=== PATIENT | female | born 2005 | race Two or more races ===

== ENCOUNTER 2024-07-18 11:04 | Emergency (ER) | payer MEDICAID ==
[~2024-07-18] VITALS: Ht 167.6 cm; Wt 77.9 kg
[2024-07-18 13:50] LABS: Urine Bacteria None Seen /hpf (None Seen)
[2024-07-18 13:57] LABS: Urine Blood Negative /uL (Negative); Urine Clarity Clear (Clear); Urine Color Colorless (Yellow); Urine Protein, UAD Negative (Negative); Urine Specific Gravity 1.006 (1.001-1.035); Urine Urobilinogen Normal (Negative); Urine WBC 1 /hpf (0 - 5)
[2024-07-18 14:11] VITALS: BP 116/75; PULSE 105; RESP 16; TEMP 98.5; O2SAT 96
[2024-07-18] MEDS ORDERED: CEPH250C PO (14:17)
== END 2024-07-18 14:30 | disposition home or self-care (01) ==
LOC: ER 11:16
DX: O23.42 Unspecified infection of urinary tract in pregnancy, second trimester (principal); R10.2 Pelvic and perineal pain; Z3A.20 20 weeks gestation of pregnancy
CPT/HCPCS: 36415; 81001; 82962; 84702; 93005

== ENCOUNTER 2024-11-17 03:56 | Inpatient (IN) | payer MEDICAID ==
[~2024-11-17] VITALS: Ht 167.6 cm; Wt 93.9 kg
[~2024-11-17 03:56] MED LIST: CEPH250C PO
--- NOTE | 2024-11-17 05:31 | DVH ---
BIOPHYSICAL PROFILE HISTORY: Rupture of membranes Comparison Study: None TECHNIQUE: Multiple real-time grayscale sonographic images through the gravid uterus of the fetus wi th duplex Doppler color flow and M-mode spectral analysis FINDINGS: BIOPHYSICAL PROFILE: breathing score: 2 movement score: 2 tone score: 2 Quantitative CARLI score: 0 (CARLI: 4.5 Cm.) Total score: 6/8 The cervix is not visualized Single live fetus in cephalic presentation. heart rate 147 beats per minute. Anterior placenta without previa or abruption IMPRESSION: Biophysical profile score: 6/8 CARLI measures 4.5 cm.
[2024-11-17 07:00] LABS: Basophils # (auto) 0.1 10 ^3/uL (0-0.2); Eosinophils # (auto) 0.1 10 ^3/uL (0-0.8); Hemoglobin 12.1 g/dL (12.2-16.2); Monocytes # (auto) 0.6 10 ^3/uL (0-1.3); Nucleated Red Blood Cells % 0.1 %
[2024-11-17 07:04] LABS: Fern Testing Positive
[2024-11-17 07:04] LABS: Basophils % (auto) 0.7 % (0.0-2.0); Eosinophils % (auto) 0.6 % (0.0-7.0); Hematocrit 37.3 % (36.0-46.0); Lymphocytes # (auto) 3.3 10 ^3/uL (0.4-5.4); Lymphocytes % (auto) 30.1 % (10.0-50.0); Mean Corpuscular Hemoglobin 26.5 pg (28.0-32.0); Mean Corpuscular Hgb Conc. 32.5 g/dL (32.0-36.0); Mean Corpuscular Volume 81.4 fL (80.0-100.0); Monocytes % (auto) 5.4 % (0.0-12.0); Neutrophils % (auto) 63.2 % (37.0-80.0); Platelet Count (auto) 317 10^3/uL (140-450); Red Blood Cells 4.58 10^6/uL (4.0-5.20); Red Cell Distribution Width 15.4 % (11.8-14.3); White Blood Cell 11.1 10^3/uL (4.4-10.8)
[2024-11-17 07:05] LABS: INR 0.93 (0.9-1.15); Prothrombin Time 9.9 sec (9.3-11.8)
[2024-11-17 07:10] LABS: Alanine Aminotransferase 11 U/L (7-40); Albumin 3.9 g/dL (3.2-4.8); Anion Gap 11 (5-15); Aspartate Aminotransferase 16 U/L (13-40); BUN/Creatinine Ratio 14.1 (10.0-20.0); Blood Urea Nitrogen 10 mg/dL (9-23); Calcium 9.4 mg/dL (8.7-10.4); Carbon Dioxide 21 mmol/L (20-31); Chloride 106 mmol/L (98-107); Sodium 138 mmol/L (136-145)
[2024-11-17 07:11] LABS: Bilirubin, Total 0.3 mg/dL (0.2-1.0)
[2024-11-17 07:12] LABS: Alkaline Phosphatase 243 U/L (46-116); Glucose 73 mg/dL (74-106)
[2024-11-17 08:00] LABS: Urine Bacteria FEW /hpf (None Seen); Urine Blood 2+ /uL (Negative); Urine Clarity Turbid (Clear); Urine Color Colorless (Yellow); Urine Protein, UAD TRACE (Negative); Urine Specific Gravity 1.009 (1.001-1.035); Urine Squamous Epithelial Cell FEW /hpf (<5); Urine Urobilinogen Normal (Negative); Urine WBC 6 /HPF (0-5); Urine pH 6.5 (5.0-9.0)
--- NOTE | 2024-11-17 08:06 | DVHHP2 ---
OB CC & HPI Date Date of Admission: Nov 17, 2024 Patient Identification: : 1 Para: 0 EDC: Nov 18, 2024 EGA: 39wks Chief Complaints: Reason for admission: rupture of membranes Admission Nurse Assessment Rev: No History of Present Complaints pt is admitted for srom has no vag bleeding Past Medical History Cardiac: No pertinent Hx Pulmonary: No pertinent Hx Central Nervous System: No pertinent Hx GI: No pertinent Hx Hemotology/Oncology: No pertinent Hx Hepatobiliary: No pertinent Hx Psychiatric: No pertinent Hx Musculoskeletal: No pertinent Hx Rheumotologic: No pertinent Hx Infectious Disease: No peritnent Hx ENT: No pertinent Hx Renal/: No pertinent Hx Endocrine: No pertinent Hx Dermatology: No pertinent Hx Past Surgical History: No pertinent Hx OB History OB History Ultrasounds: Normal mid trimester US Obstetrical Complications: None Medical Complications: None Allergies: Coded Allergies: NO KNOWN ALLERGIES (Unverified , 07/18/24) Home Meds Active Scripts Cephalexin (KEFLEX CAPSULE) 250 Mg Cp, 250 MG PO QID for 5 Days, #20 BOTTLE Prov:FLORA SHERIDAN MD 07/18/24 Current Medications Current Medications Medications (Trade) Dose Ordered Sig/Mike Route PRN Reason Start Time Stop Time Status Last Admin Lactated Ringer's 1,000 ml @ 125 mls/hr Q8H IV 11/17/24 06:00 Nalbuphine HCl (Nubain) 10 mg Q4HP PRN IV MODERATE PAIN (4-6 PAIN SCALE) 11/17/24 06:00 Witch Flor (Tucks) 1 pad PRN PRN TOP PERINEAL AREA DISCOMFORT 11/17/24 06:00 Sodium Lauryl Sulfate (Phisoderm) 240 ml PRN PRN TOP PERINEAL AREA DISCOMFORT 11/17/24 06:00 Benzocaine (Dermoplast) 1 applic PRN PRN TOP PERINEAL AREA DISCOMFORT 11/17/24 06:00 Lidocaine HCl (Xylocaine) 40 ml ONCE PRN IJ PERINEAL AREA DISCOMFORT 11/17/24 06:00 Family & Social History Family/Social History Blood Type: Unknown Rubella: unknown RPR/VDRL: Negative GBS Status: Unknown HBsAG: Negative Review of Systems Constitutional: No symptom reported Ears, Nose, & Throat: No symptom reported Eyes: No symptom reported Pulmonary/Respiratory: No symptom reported Cardiovascular: No symptom reported Gastrointestinal: No symptom reported Genitourinary: No symptom reported Musculoskeletal: No symptom reported Skin: No symptom reported Psychiatric: No symptom reported Endocrine: No symptom reported Hemotologic/Lymphatic: No symptom reported OB Admission Exam Physical Exam HEENT: TMs Normal, Fontanelles Normal, Nasal Mucosa Normal, Eyes non-injected, Oropharynx Normal, PERRLA, Moist Membranes, EOMI Heart: Rhythm Normal Lungs: Clear Abdomen: Non tender Extremities: Normal Reflexes: Normal Cervical Dilatation: 3cm Effacement: 50% Station: -2 Membranes: Ruptured Amniotic Fluid: Clear Heart Rate: 130's Accelerations: Accelerations Present Decelerations: No Decelerations Short Term Variability: Present Detention Variability: Average (6-25) Contractions on Admission: < 5 Minutes Apart Intensity: Moderate OB Plan Plan Admitting Diagnosis: iup at 39wks with srom Plan: Expectant Management Other Plan: informed consent obtained Visit Coding OBGYN Date of Service: Nov 17, 2024 Billing Provider: RICARDO KIMBLE DO SCHEDULER MAINTENANCE Common Visit Codes: [id number]-[id number] SAME DATE (HIGH) SCHEDULER MAINTENANCE Procedure Codes: 08426-64- NON-STRESS TEST RICARDO KIMBLE DO Nov 17, 2024 08:06
[2024-11-17 08:21] LABS: Amphetamine Screen, Urine Neg (NEGATIVE); Barbiturate Scree,Urine Neg (NEGATIVE); Benzodiazephine Screen, Urine Neg (NEGATIVE); Cannabinoid Screen, Urine Neg (NEGATIVE); Opiate Scree,Urine Neg (NEGATIVE); Phencyclidine Screen, Urine Neg (NEGATIVE)
[2024-11-17 08:31] LABS: Cocaine Screen, Urine Neg (NEGATIVE)
[2024-11-17] MEDS ORDERED: TERBUTALINE SULFATE 1 MG/ML 1ML VIAL SC PRN (10:30)
[2024-11-17] MEDS: LACT. RINGERS/OXYTOCIN 20UNITS 1,000 ML IV SCH (11:00)
[2024-11-17] MEDS: LACTATED RINGER'S 1,000 ML IV SCH (11:03)
[2024-11-17] MEDS: PHISODERM TOP SOLN 240ML BTL TOP PRN (11:03)
[2024-11-17] MEDS: WITCH HAZEL-GLYCERIN PAD TOP PRN (11:03)
[2024-11-17] MEDS: DERMOPLAST 60ML BOTTLE TOP PRN (11:03)
--- NOTE | 2024-11-17 14:27 | DVHPN2 ---
Chief Complaints Patient reports: No new complaints Nursing reports: No new complaints Objective Medications Current Medications Medications (Trade) Dose Ordered Sig/Mike Route PRN Reason Start Time Stop Time Status Last Admin Benzocaine (Dermoplast) 1 applic PRN PRN TOP PERINEAL AREA DISCOMFORT 11/17/24 06:00 11/17/24 11:03 Lactated Ringer's 1,000 ml @ 125 mls/hr Q8H IV 11/17/24 06:00 11/17/24 11:03 Lidocaine HCl (Xylocaine) 40 ml ONCE PRN IJ PERINEAL AREA DISCOMFORT 11/17/24 06:00 Nalbuphine HCl (Nubain) 10 mg Q4HP PRN IV MODERATE PAIN (4-6 PAIN SCALE) 11/17/24 06:00 Oxytocin 1,000 ml @ 6 ml/hr Q24H IV 11/17/24 10:30 11/17/24 11:00 Sodium Lauryl Sulfate (Phisoderm) 240 ml PRN PRN TOP PERINEAL AREA DISCOMFORT 11/17/24 06:00 11/17/24 11:03 Terbutaline Sulfate (Brethine Inj) 0.25 mg ONCE PRN SC Uterine tachysystole 11/17/24 10:30 Witch Flor (Tucks) 1 pad PRN PRN TOP PERINEAL AREA DISCOMFORT 11/17/24 06:00 11/17/24 11:03 Others ve-4cm/70/-2 pt seen at noon Studies Laboratory Tests 11/17/24 06:16 Test 11/17/24 06:16 Range/Units Serum Glucose 73 L 74-106 mg/dL Ass/Plan Assessment labor Plan cont with pitocin Visit Coding OBGYN Date of Service: Nov 17, 2024 Billing Provider: RICARDO KIMBLE DO WATCH TRAIN ASSEMBLER Common Visit Codes: [id number] INP/OBS CARE(HIGH) WATCH TRAIN ASSEMBLER Procedure Codes: 97920-81- NON-STRESS TEST RICARDO KIMBLE DO Nov 17, 2024 14:27
--- NOTE | 2024-11-17 15:45 | DVHPN2 ---
CNM Labor Progress Note Date and Time Seen Date Seen: Nov 17, 2024 Time Seen: 15:25 Subjective Subjective Comment Pt is tolerating UC pain. Denies GIL/vision changes/RUQ pain. Objective Vital Signs VSS except liable hypertension, not severe range EFW 8lbs per Dr. Swartz Monitoring Method Monitoring Method: External Heart Rate Heart Rate Baseline: 130 Heart Rate Variability: Moderate Presence of FHR Accelerations: Yes Presence of FHR Decelerations: No Are all 5 Components of the FH: Yes Contractions Contractions Frequency: Other (q2-4min) Duration of Contraction: 100 Contractions Intensity: Moderate Contractions Resting Tone: Relaxed Membranes Membranes: Ruptured Amniotic Fluid Color: Clear Vaginal Exam Vag Exam Deferred: Yes (SVE by RN: /-1, vertex) Medications Medications - Pitocin: Yes (6mu) Medications - Pain Medications: PRN Medication - Epidural: No Lab Results Lab Results Current Medications Medications (Trade) Dose Ordered Sig/Mike Start Time Stop Time Status Last Admin Dose Admin Lactated Ringer's 1,000 ml @ 125 mls/hr Q8H 11/17/24 06:00 11/17/24 11:03 125 MLS/HR Nalbuphine HCl (Nubain) 10 mg Q4HP PRN 11/17/24 06:00 Witdavid Ray (Tucks) 1 pad PRN PRN 11/17/24 06:00 11/17/24 11:03 1 PAD Sodium Lauryl Sulfate (Phisoderm) 240 ml PRN PRN 11/17/24 06:00 11/17/24 11:03 240 ML Benzocaine (Dermoplast) 1 applic PRN PRN 11/17/24 06:00 11/17/24 11:03 1 APPLIC Lidocaine HCl (Xylocaine) 40 ml ONCE PRN 11/17/24 06:00 Oxytocin 500 ml @ 999 mls/hr Q31M ONCE 11/17/24 09:00 11/17/24 09:30 DC Oxytocin 500 ml @ 125 mls/hr Q4H ONCE 11/17/24 09:30 11/17/24 13:29 DC Oxytocin 1,000 ml @ 6 ml/hr Q24H 11/17/24 10:30 11/17/24 11:00 6 ML/HR Terbutaline Sulfate (Brethine Inj) 0.25 mg ONCE PRN 11/17/24 10:30 Laboratory Tests Test 11/17/24 06:39 11/17/24 06:16 11/17/24 05:05 Range/Units Urine Color Colorless Yellow Urine Clarity Turbid H Clear Urine pH 6.5 5.0-9.0 Urine Specific [place] 1.009 1.001-1.035 Urine Protein Trace H Negative Urine Ketones Negative Negative Urine Blood 2+ H Negative /uL Urine Nitrite Negative Negative Urine Bilirubin Negative Negative Urine Urobilinogen Normal Negative mg/dL Urine Leukocyte Esterase 1+ Negative /uL Urine RBC 7 0 - 4 /hpf Urine Microscopic WBC 6 H 0-5 /HPF Urine Squamous Epithelial Cells Few <5 /hpf Urine Bacteria Few H None Seen /hpf Urine Glucose Normal Normal mg/dL Urine Opiates Screen Neg NEGATIVE Urine Fentanyl Screen Neg NEGATIVE Urine Barbiturates Screen Neg NEGATIVE Urine Phencyclidine Screen Neg NEGATIVE Urine Amphetamines Screen Neg NEGATIVE Urine Benzodiazepines Screen Neg NEGATIVE Urine Cocaine Screen Neg NEGATIVE Urine Cannabinoids Screen Neg NEGATIVE White Blood Count 11.1 H 4.4-10.8 10^3/uL Red Blood Count 4.58 4.0-5.20 10^6/uL Hemoglobin 12.1 L 12.2-16.2 g/dL Hematocrit 37.3 36.0-46.0 % Mean Corpuscular Volume 81.4 80.0-100.0 fL Mean Corpuscular Hemoglobin 26.5 L 28.0-32.0 pg Mean Corpuscular Hemoglobin Concent 32.5 32.0-36.0 g/dL Red Cell Distribution Width 15.4 H 11.8-14.3 % Platelet Count 317 140-450 10^3/uL Mean Platelet Volume 8.6 6.9-10.8 fL Neutrophils (%) (Auto) 63.2 37.0-80.0 % Lymphocytes (%) (Auto) 30.1 10.0-50.0 % Monocytes (%) (Auto) 5.4 0.0-12.0 % Eosinophils (%) (Auto) 0.6 0.0-7.0 % Basophils (%) (Auto) 0.7 0.0-2.0 % Neutrophils # (Auto) 7.0 1.6-8.6 10 ^3/uL Lymphocytes # (Auto) 3.3 0.4-5.4 10 ^3/uL Monocytes # (Auto) 0.6 0-1.3 10 ^3/uL Eosinophils # (Auto) 0.1 0-0.8 10 ^3/uL Basophils # (Auto) 0.1 0-0.2 10 ^3/uL Nucleated Red Blood Cells 0.1 % Prothrombin Time 9.9 9.3-11.8 sec Prothrombin Time INR 0.93 0.9-1.15 Activated Partial Thromboplast Time 28.0 24.5-34.5 SEC Sodium Level 138 136-145 mmol/L Potassium Level 4.0 3.5-5.1 mmol/L Chloride Level 106 98-107 mmol/L Carbon Dioxide Level 21 20-31 mmol/L Anion Gap 11 5-15 Blood Urea Nitrogen 10 9-23 mg/dL Creatinine 0.71 0.550-1.02 mg/dL Glomerular Filtration Rate Calc 125 >90 mL/min BUN/Creatinine Ratio 14.1 10.0-20.0 Serum Glucose 73 L 74-106 mg/dL Uric Acid 6.4 3.1-7.8 mg/dL Calcium Level 9.4 8.7-10.4 mg/dL Total Bilirubin 0.3 0.2-1.0 mg/dL Aspartate Amino Transferase (AST) 16 13-40 U/L Alanine Aminotransferase (ALT) 11 7-40 U/L Alkaline Phosphatase 243 H 46-116 U/L Total Protein 6.0 5.7-8.2 g/dL Albumin 3.9 3.2-4.8 g/dL Rapid Plasma Reagin Pending Hepatitis B Surface Antigen Negative Negative Hepatitis C Antibody Negative Negative HIV (1&2) Antibody Negative Negative Rubella IgG Antibody Pending Amniotic Fluid Ferning Test Positive Assessment Assessment A: 19yo IUP@39.6wks Spontaneous Labor Pitocin augmentation Category I EFM SROM, clear fluid GBS negative Plan Plan P: PreE labs ordered Continue with IV pitocin titration per order monitoring per order Pain mgmt PRN Frequent position changes in and out of bed encouraged Limit SVE unless necessary Intrauterine resuscitation PRN Anticipate CNM consulted with Dr. Swartz, agrees with POC Plan discussed with: Patient, Other (family) Visit Coding OBGYN Date of Service: Nov 17, 2024 Billing Provider: MARCIA AMARO CNM PHP WORDPRESS DEVELOPER Common Visit Codes: [id number] INP/OBS CARE(HIGH) MARCIA AMARO CNM Nov 17, 2024 15:45
[2024-11-17 16:31] LABS: Protein, Urine 28.4 mg/dL (1-14)
[2024-11-17 16:33] LABS: Creatinine, Urine 78.82 mg/dL (30.0-125.0); Urine Protein/Creatinine Ratio 0.36
[2024-11-17] MEDS: ONDANSETRON HCL 4 MG/2 ML VIAL IV PRN (18:01)
[2024-11-17] MEDS: NALBUPHINE HCL 10 MG/1ml INJECTION IV PRN (18:02)
[2024-11-17] MEDS ORDERED: ACETAMINOPHEN 325 MG TAB PO PRN (20:30)
[2024-11-17] MEDS ORDERED: diphenhdrAMINE HCL 50 MG/1 ML VL IV PRN (20:30)
[2024-11-17] MEDS ORDERED: miSOPROStol 100 mcg TAB PR PRN (20:30)
[2024-11-17] MEDS ORDERED: CARBOPROST TROMETHAMINE 250 MCG/1ML VIAL IM PRN (20:30)
[2024-11-17] MEDS ORDERED: ONDANSETRON HCL 4 MG/2 ML VIAL IV PRN (20:30)
[2024-11-17] MEDS: ceFAZolin 2 GM/D5W50ml 50 ML IV SCH (21:19)
--- NOTE | 2024-11-17 23:05 | DVHPN2 ---
CNM Labor Progress Note Date and Time Seen Date Seen: Nov 17, 2024 Time Seen: 22:00 Subjective Patient reports: No new complaints Subjective Comment Pt is tolerating UC pain. Denies GIL/vision changes/RUQ pain. Objective Vital Signs VSS except HTN, see chart Monitoring Method Monitoring Method: External Heart Rate Heart Rate Baseline: 135 Heart Rate Variability: Moderate Presence of FHR Accelerations: Yes Presence of FHR Decelerations: Yes Heart Rate Type of Decel: Early Deceleraions Comment on Trends or Patterns: Are all 5 Components of the FH: Yes Contractions Contractions Frequency: Other (2-4) Duration of Contraction: 60 Contractions Intensity: Moderate Contractions Resting Tone: Relaxed Membranes Membranes: Ruptured Amniotic Fluid Color: Clear Vaginal Exam Vag Exam Deferred: No (6.5 cm) Vaginal Exam Effacement: 90 Vaginal Exam Station: -1 Vaginal Exam Presentation: VTX Vaginal Exam Show: Small Medications Medications - Pitocin: Yes (10mu) Medications - Pain Medications: PRN Medication - Epidural: No Lab Results Lab Results Vital Signs Date Time Temp Pulse Resp B/P (MAP) Pulse Ox O2 Delivery O2 Flow Rate FiO2 11/17/24 19:02 80 16 127/77 Current Medications Medications (Trade) Dose Ordered Sig/Mike Start Time Stop Time Status Last Admin Dose Admin Lactated Ringer's 1,000 ml @ 125 mls/hr Q8H 11/17/24 06:00 11/17/24 19:54 125 MLS/HR Nalbuphine HCl (Nubain) 10 mg Q4HP PRN 11/17/24 06:00 11/17/24 18:02 10 MG Witch Flor (Tucks) 1 pad PRN PRN 11/17/24 06:00 11/17/24 11:03 1 PAD Sodium Lauryl Sulfate (Phisoderm) 240 ml PRN PRN 11/17/24 06:00 11/17/24 11:03 240 ML Benzocaine (Dermoplast) 1 applic PRN PRN 11/17/24 06:00 11/17/24 11:03 1 APPLIC Lidocaine HCl (Xylocaine) 40 ml ONCE PRN 11/17/24 06:00 Oxytocin 500 ml @ 999 mls/hr Q31M ONCE 11/17/24 09:00 11/17/24 09:30 DC Oxytocin 500 ml @ 125 mls/hr Q4H ONCE 11/17/24 09:30 11/17/24 13:29 DC Oxytocin 1,000 ml @ 6 ml/hr Q24H 11/17/24 10:30 11/17/24 11:00 6 ML/HR Terbutaline Sulfate (Brethine Inj) 0.25 mg ONCE PRN 11/17/24 10:30 Ondansetron HCl (Zofran) 4 mg Q4HPRN PRN 11/17/24 17:30 11/18/24 00:07 4 MG Cefazolin Sodium/ Dextrose 50 ml @ 50 mls/hr Q8HR 11/17/24 21:30 11/17/24 21:19 50 MLS/HR Ondansetron HCl (Zofran) 4 mg Q4HP PRN 11/17/24 20:30 Diphenhydramine HCl (Benadryl Injection) 50 mg Q4HP PRN 11/17/24 20:30 Carboprost Tromethamine (Hemabate) 250 mcg ONCE PRN 11/17/24 20:30 11/24/24 20:31 Misoprostol (Cytotec) 800 mcg ONCE PRN 11/17/24 20:30 Acetaminophen (Tylenol Tablet) 1,000 mg Q6HP PRN 11/17/24 20:30 Diphenoxylate HCl/ Atropine (Lomotil Tablet) 5 mg Q6HP 11/18/24 00:00 Lactated Ringer's 1,000 ml @ 75 mls/hr [id number] 11/17/24 23:45 Magnesium Sulfate 1,000 ml @ 50 mls/hr Q20H 11/17/24 23:45 11/18/24 00:21 50 MLS/HR Magnesium Sulfate 100 ml @ 300 mls/hr ONCE ONCE 11/17/24 23:45 11/18/24 00:04 DC 11/18/24 00:06 300 MLS/HR Hydralazine HCl (Apresoline Injection) 5 mg Q20MP PRN 11/18/24 00:00 Hydralazine HCl (Apresoline Injection) 10 mg Q20MP PRN 11/18/24 00:00 Laboratory Tests Test 11/18/24 00:11 11/17/24 16:12 11/17/24 06:39 11/17/24 06:16 Range/Units Magnesium Lvl (Mg Sulfate Therapy) Pending Urine Creatinine 78.82 30.0-125.0 mg/dL Urine Protein/Creatinine Ratio 0.36 Urine Total Protein 28.4 H 1-14 mg/dL Urine Color Colorless Yellow Urine Clarity Turbid H Clear Urine pH 6.5 5.0-9.0 Urine Specific [place] 1.009 1.001-1.035 Urine Protein Trace H Negative Urine Ketones Negative Negative Urine Blood 2+ H Negative /uL Urine Nitrite Negative Negative Urine Bilirubin Negative Negative Urine Urobilinogen Normal Negative mg/dL Urine Leukocyte Esterase 1+ Negative /uL Urine RBC 7 0 - 4 /hpf Urine Microscopic WBC 6 H 0-5 /HPF Urine Squamous Epithelial Cells Few <5 /hpf Urine Bacteria Few H None Seen /hpf Urine Glucose Normal Normal mg/dL Urine Opiates Screen Neg NEGATIVE Urine Fentanyl Screen Neg NEGATIVE Urine Barbiturates Screen Neg NEGATIVE Urine Phencyclidine Screen Neg NEGATIVE Urine Amphetamines Screen Neg NEGATIVE Urine Benzodiazepines Screen Neg NEGATIVE Urine Cocaine Screen Neg NEGATIVE Urine Cannabinoids Screen Neg NEGATIVE White Blood Count 11.1 H 4.4-10.8 10^3/uL Red Blood Count 4.58 4.0-5.20 10^6/uL Hemoglobin 12.1 L 12.2-16.2 g/dL Hematocrit 37.3 36.0-46.0 % Mean Corpuscular Volume 81.4 80.0-100.0 fL Mean Corpuscular Hemoglobin 26.5 L 28.0-32.0 pg Mean Corpuscular Hemoglobin Concent 32.5 32.0-36.0 g/dL Red Cell Distribution Width 15.4 H 11.8-14.3 % Platelet Count 317 140-450 10^3/uL Mean Platelet Volume 8.6 6.9-10.8 fL Neutrophils (%) (Auto) 63.2 37.0-80.0 % Lymphocytes (%) (Auto) 30.1 10.0-50.0 % Monocytes (%) (Auto) 5.4 0.0-12.0 % Eosinophils (%) (Auto) 0.6 0.0-7.0 % Basophils (%) (Auto) 0.7 0.0-2.0 % Neutrophils # (Auto) 7.0 1.6-8.6 10 ^3/uL Lymphocytes # (Auto) 3.3 0.4-5.4 10 ^3/uL Monocytes # (Auto) 0.6 0-1.3 10 ^3/uL Eosinophils # (Auto) 0.1 0-0.8 10 ^3/uL Basophils # (Auto) 0.1 0-0.2 10 ^3/uL Nucleated Red Blood Cells 0.1 % Prothrombin Time 9.9 9.3-11.8 sec Prothrombin Time INR 0.93 0.9-1.15 Activated Partial Thromboplast Time 28.0 24.5-34.5 SEC Sodium Level 138 136-145 mmol/L Potassium Level 4.0 3.5-5.1 mmol/L Chloride Level 106 98-107 mmol/L Carbon Dioxide Level 21 20-31 mmol/L Anion Gap 11 5-15 Blood Urea Nitrogen 10 9-23 mg/dL Creatinine 0.71 0.550-1.02 mg/dL Glomerular Filtration Rate Calc 125 >90 mL/min BUN/Creatinine Ratio 14.1 10.0-20.0 Serum Glucose 73 L 74-106 mg/dL Uric Acid 6.4 3.1-7.8 mg/dL Calcium Level 9.4 8.7-10.4 mg/dL Total Bilirubin 0.3 0.2-1.0 mg/dL Aspartate Amino Transferase (AST) 16 13-40 U/L Alanine Aminotransferase (ALT) 11 7-40 U/L Alkaline Phosphatase 243 H 46-116 U/L Total Protein 6.0 5.7-8.2 g/dL Albumin 3.9 3.2-4.8 g/dL Rapid Plasma Reagin Pending Hepatitis B Surface Antigen Negative Negative Hepatitis C Antibody Negative Negative HIV (1&2) Antibody Negative Negative Rubella IgG Antibody Pending Test 11/17/24 05:05 Range/Units Amniotic Fluid Ferning Test Positive Assessment Assessment A: 19yo IUP@39.6wks Spontaneous Labor Pitocin augmentation Category I EFM SROM, clear fluid GBS negative Plan Plan P: Continue with IV pitocin titration per order Ancef 2g q8h ordered prophylactically for infection prevention monitoring per order Pain mgmt PRN Frequent position changes in and out of bed encouraged Limit SVE unless necessary Intrauterine resuscitation PRN Anticipate CNM consulted with Dr. Swartz, agrees with POC. Magnesium Sulfate 4g IV bolus and 2g/hr maintenance ordered by Dr. Swartz to start when pt is in transition. Plan discussed with: Patient, Spouse, Other (Patient's sister and mother ) Visit Coding OBGYN Date of Service: Nov 18, 2024 Billing Provider: MARCIA AMARO CNM GENERAL INTERNAL MEDICINE DOCTOR Common Visit Codes: [id number] INP/OBS CARE(HIGH) AMANDA DE GUZMAN MDWF Nov 17, 2024 23:05
[2024-11-17] MEDS: MAGNESIUM SULFATE 100 ML IV ONE (23:57)
[2024-11-18] VITALS (27 sets, daily range): BP systolic 91–130; BP diastolic 50–97; PULSE 66–100; RESP 16–20; TEMP 97.7–98.4; O2SAT 91–98
[2024-11-18] MEDS ORDERED: hydrALAZINE HCL 20 MG/ML VL IV PRN ×2
[2024-11-18] MEDS: MAGNESIUM SULFATE 100 ML IV ONE (00:06)
[2024-11-18] MEDS: MAGNESIUM SULFATE 40MG/ML 1,000 ML IV SCH (00:21)
[2024-11-18] MEDS: LACT. RINGERS/OXYTOCIN 20UNITS 500 ML IV ONE ×2 (01:52→01:54)
[2024-11-18] MEDS: LIDOCAINE 2%HCL (LOCAL ANESTH.) INJ 20ML MDV IJ PRN (01:55)
--- NOTE | 2024-11-18 02:55 | LDN2 ---
Labor and Delivery Note Date 11/18/24 Age 19 1 Para 1 EDC 11/18/2024 EGA 40.0 Diagnosis Spontaneous labor/SROM and preeclampsia then Vaginal Delivery: VTX Vacuum Assisted: No Placenta: Spontaneous Sex: Male Weight pending Apgars 8/9 Nuchal Cord Transected: No Amniotic Fluid: Clear Anesthesia local Episiotomy: No Extension: No Repaired with 3-0 Vicryl EBL QBL 650ml Labs Laboratory Tests 11/17/24 06:16: Hepatitis B Surface Antigen Negative, HIV (1&2) Antibody Negative Blood Bank 11/17/24 06:16: Blood Type A POSITIVE Complications Preeclampsia: Magnesium sulfate 2g/hr IV infusion running per Dr. Swartz's order, rogers catheter inserted Dr. Swartz is managing preeclampsia. RN to call Dr. Swartz directly to report severe range BPs (SBP >160 and/or DBP >95). Conditions stable, pt denies GIL/vision changes/RUQ pain Car Repairer Apprentice somu Comments/Significant Med Fred At 0101 this 19yo now delivered a viable Male infant by w/ APGARS 8/9. JUSTEN presentation. placed skin to skin on pts chest. Cord clamped and cut after pulsation ceased. Intact 3-vessel cord placenta delivered spontaneously, Phuc. Circummarginate placenta. Eccentric cord insertion. Pitocin IV bolus started. Placenta sent to pathology. Patient had local anesthesia. Cervix/vagina inspected (intact) and second degree perineal/left sulcal lacerations present, repaired with 3-0 vicryl suture. TXA 2g total given for bleeding from laceration. Rectal mucosa and sphincter intact. Rectal exam performed, WNL, not involved. Fundus at U, firm, midline, and light lochia. QBL 650ml. VSS. Count correct x2. Patient to care and baby to couplet care, both stable. Visit Coding OBGYN Date of Service: Nov 18, 2024 Billing Provider: MARCIA AMARO CNM SALES REVIEW CLERK Common Visit Codes: [id number] INP/OBS CARE(HIGH) SALES REVIEW CLERK Procedure Codes: 29054-[id number] DEL INCLUDING AMANDA DE GUZMAN STDT MDWF Nov 18, 2024 02:55
[2024-11-18 07:07] LABS: RPR Non Reactive (Non Reactive)
[2024-11-18] MEDS: LACTATED RINGER'S 1,000 ML IV SCH (11:16)
[2024-11-18] MEDS ORDERED: IBUPROFEN 600 MG TAB PO PRN (15:15)
[2024-11-18] MEDS ORDERED: ONDANSETRON ODT 4 MG TAB PO PRN (15:15)
[2024-11-18] MEDS: ACETAMINOPHEN 325 MG TAB PO PRN (15:28)
[2024-11-18] MEDS: DIPHENOXYLATE W/ATROPINE 2.5 MG TAB PO SCH (18:00)
[2024-11-18] MEDS: DOCUSATE SOD 100 MG CAP PO SCH (22:31)
[2024-11-19 03:10] VITALS: BP 113/64; PULSE 83; RESP 16; TEMP 98.1; O2SAT 97
[2024-11-19 07:00] VITALS: BP 118/72; PULSE 98; RESP 17; TEMP 98.4; O2SAT 98
--- NOTE | 2024-11-19 08:16 | DVHPN2 ---
Chief Complaints Patient reports: No new complaints Nursing reports: No new complaints Objective Vitals Vital Signs Date Time Temp Pulse Resp B/P (MAP) Pulse Ox O2 Delivery O2 Flow Rate FiO2 11/19/24 07:00 98.4 98 17 118/72 (87) 98 98.4 11/19/24 07:00 Room Air Medications Current Medications Medications (Trade) Dose Ordered Sig/Mike Route PRN Reason Start Time Stop Time Status Last Admin Acetaminophen (Tylenol Tablet) 650 mg Q4HP PRN PO MILD PAIN (1-3 PAIN SCALE) 11/18/24 15:15 11/18/24 15:28 Docusate Calcium (Surfak Capsule) 240 mg DAILY PO 11/19/24 10:00 Docusate Sodium (Colace Capsule) 200 mg HS PO 11/18/24 22:00 11/18/24 22:31 Ibuprofen (Motrin Tablet) 600 mg Q6HP PRN PO MODERATE PAIN (4-6 PAIN SCALE) 11/18/24 15:15 General: Normal Lungs: Normal Cardiovascular: Normal Abdominal: Soft Extremities: Normal Studies Laboratory Tests 11/17/24 06:16 Test 11/17/24 06:16 Range/Units Serum Glucose 73 L 74-106 mg/dL Ass/Plan Assessment S/P Plan DC HOME FU IN 1 WK Visit Coding OBGYN Date of Service: Nov 19, 2024 Billing Provider: RICARDO KIMBLE DO EDGING MACHINE OPERATOR Common Visit Codes: [id number] INP/OBS CARE (HIGH) RICARDO KIMBLE DO Nov 19, 2024 08:15
--- NOTE | 2024-11-19 08:17 | DVHDS2 ---
Obstetrics Discharge Summary Obstetrics Discharge Summary Date of Admission: Nov 17, 2024 Date of Discharge: Nov 19, 2024 Reason For Admission: Onset of Labor Procedures: NST Procedures: None Operative Complicat: Vaginal Laceration Discharge Diagnosis: Term -Delivered, Others (PIH) Discharge Information: Activity (Other), Diet (Routine), Medications (None), Instructions (Routine), Discharge to (Home), Accompanied by, Discarge date (- ) Visit Coding OBGYN Date of Service: Nov 19, 2024 Billing Provider: RICARDO KIMBLE DO CAR CHASER Common Visit Codes: [id number] INP/OBS CARE(HIGH) CAR CHASER Consultation Codes: [id number] INPATIENT CONSULT (MOD) RICARDO KIMBLE DO Nov 19, 2024 08:17
[2024-11-19] MEDS: DOCUSATE CALCIUM 240 MG CAP PO SCH (10:00)
[2024-11-19 11:10] VITALS: BP 111/65; PULSE 90; RESP 16; TEMP 98.1; O2SAT 99
[2024-11-19 15:02] VITALS: BP 121/78; PULSE 94; RESP 16; TEMP 98.2; O2SAT 97
== END 2024-11-19 15:55 | disposition home or self-care (01) | DRG 560 ==
LOC: LDRP 03:56 → OBSVTOIN 05:36 → NUR 05:37 → LDRP 06:10
PROVIDERS: ADMIT Obstetrics & Gynecology; ATTEND Obstetrics & Gynecology
PROC: 10E0XZZ Delivery of Products of Conception, External Approach (ICD-10-PCS; principal; 2024-11-18)
PROC: 0KQM0ZZ Repair Perineum Muscle, Open Approach (ICD-10-PCS; 2024-11-18)
DX: O13.4 Gestational [pregnancy-induced] hypertension without significant proteinuria, complicating childbirth (principal); Z37.0 Single live birth; O70.1 Second degree perineal laceration during delivery; Z3A.39 39 weeks gestation of pregnancy; Z79.899 Other long term (current) drug therapy
CPT/HCPCS: 36415; 59025; 59409; 76818; 80053; 80307; 81001; 81002; 82570; 83735; 84156; 84550; 85025; 85610; 85730; 86592; 86703; 86762; 86803; 86850; 86900; 86901; 87340; 94760; 94762; 96360; 96361; 96365; 96366; 96374; 96375; G0378; J2405; J2590

== ENCOUNTER → 2025-02-15 | Outpatient (CLI) | payer OTHER ==
[2025-02-16 08:07] LABS: Rubeola IgG Antibody >300.0 AU/mL (Immune >16.4); Varicella Zoster IgG Antibody Reactive (Non Reactive)
== END | disposition home or self-care (01) ==
LOC: LAB 11:05
PROVIDERS: ATTEND Registered Nurse
DX: Z01.84 Encounter for antibody response examination (principal)
CPT/HCPCS: 36415; 86706; 86735; 86762; 86765; 86787